=== PATIENT | male | born 1960 | race Caucasian/White ===

== ENCOUNTER 2021-10-07 16:10 | Emergency (ER) | payer MEDICAID ==
[~2021-10-07] VITALS: Ht 152.4 cm; Wt 54.4 kg
[2021-10-07 16:16] VITALS: BP 131/82
--- NOTE | 2021-10-07 16:58 | NUR ---
PATIENT LEFT WITHOUT BEING SEEN BY DR. MONROE. NO FURTHER CARE PROVIDED FOR PATIENT.
== END 2021-10-07 16:58 | disposition left against medical advice (07) ==
LOC: MED 16:10
DX: H57.12 Ocular pain, left eye (principal); Z53.21 Procedure and treatment not carried out due to patient leaving prior to being seen by health care provider